=== PATIENT | female | born 1995 | race Caucasian/White ===

== ENCOUNTER 2016-11-14 05:40 | Day surgery (SDC) | payer OTHER ==
[2016-11-14] MEDS ORDERED: NS 0.9% 1000 ML* 1,000 ML IV ONE (06:00)
[2016-11-14 06:49] LABS: Hematocrit 40 % (35-47); Hemoglobin 13.3 g/dl (12.0-16.0); Mean Corpuscular HGB Conc 33 g/dl (31-36); Mean Corpuscular Hemoglobin 30 pg (27-31); Mean Corpuscular Volume 89 fL (80-97); Mean Platelet Volume 10 um3 (7.4-10.4); Red Blood Count 4.49 10^6/ul (4.0-5.4); Red Cell Distribution Width 13 % (10.5-15); White Blood Count 14.6 10^3/ul (3.5-10.8)
[2016-11-14 07:04] LABS: ALT 12 U/L (7-52); AST 12 U/L (13-39); Albumin 4.3 g/dL (3.2-5.2); Alkaline Phosphatase 44 U/L (34-104); Anion Gap 7 mmol/L (2-11); BUN/Creatinine Ratio 15.7 (8-20); Blood Urea Nitrogen 13 mg/dL (6-24); C Reactive Protein 3.26 mg/L (< 5.00); CO2 Carbon Dioxide 26 mmol/L (22-32); Calcium 9.4 mg/dL (8.6-10.3); Chloride 104 mmol/L (101-111); EGFR African American 111.6 (>60); EGFR Non-African American 86.8 (>60); Globulin 2.6 g/dL (2-4); Glucose 97 mg/dL (70-100); Lipase 11 U/L (11.0-82.0); Potassium 3.8 mmol/L (3.5-5.0); Sodium 137 mmol/L (133-145); Total Protein 6.9 g/dL (6.4-8.9)
--- NOTE | 2016-11-14 08:29 | RAD ---
HISTORY: Right lower quadrant pain COMPARISONS: None TECHNIQUE: Multiple transverse and longitudinal ultrasound images were obtained of the right lower quadrant using grayscale and color Doppler imaging. FINDINGS: The appendix is not visualized. There is no free or loculated fluid within the right lower quadrant. IMPRESSION: THE APPENDIX IS NOT VISUALIZED. THERE IS NO FREE OR LOCULATED FLUID WITHIN THE RIGHT LOWER QUADRANT.
--- NOTE | 2016-11-14 08:31 | RAD ---
HISTORY: Pelvic pain COMPARISONS: None TECHNIQUE: Multiple transverse and longitudinal ultrasound images were obtained of the pelvis using grayscale, color Doppler, and spectral Doppler imaging using the transabdominal transducer. The patient deferred endovaginal imaging. FINDINGS: UTERUS: The uterus measures 8 x 3.5 x 5.6 cm. The uterus is normal in shape, size, contour, and echotexture. ENDOMETRIUM: The endometrial stripe is smooth. The endometrium measures 0.6 cm in thickness. CUL-DE-SAC: There is no free fluid within the cul-de-sac. RIGHT OVARY: The right ovary measures 3.7 x 2.1 x 2.2 cm. Normal arterial and venous waveforms are identifiable within the ovary on spectral Doppler imaging. Multiple follicles are noted. LEFT OVARY: The left ovary measures 2.6 x 2 x 3.1 cm. Normal arterial and venous waveforms are identifiable within the ovary on spectral Doppler imaging. Multiple follicles are noted. BLADDER: The visualized bladder is unremarkable. OTHER: None IMPRESSION: NO ACUTE SONOGRAPHIC PATHOLOGY OF THE VISUALIZED PORTION OF THE PELVIS. NO SONOGRAPHIC FEATURES OF TORSION. PLEASE NOTE THAT PARTIAL OR INTERMITTENT TORSION MAY BE SONOGRAPHICALLY NORMAL.
[2016-11-14 08:42] LABS: Urine Bilirubin Negative (Negative); Urine Glucose Negative (Negative); Urine Nitrite Negative (Negative)
[2016-11-14] MEDS ORDERED: Iohexol 300* (CONTRAST) 10 ML SDV IV ONE (09:23)
--- NOTE | 2016-11-14 09:59 | RAD ---
CLINICAL HISTORY: Right lower quadrant pain COMPARISON: None TECHNIQUE: Multiple contiguous axial CT scans were obtained of the abdomen and pelvis after the administration of intravenous contrast. Coronal and sagittal multiplanar reformations are submitted for review. Oral contrast was administered. Delayed images were obtained through the abdomen and pelvis. FINDINGS: LUNG BASES: The lung bases are clear. LIVER: The liver is normal in shape, size, contour, and attenuation. BILE DUCTS: There is no intrahepatic or extrahepatic biliary dilatation. GALLBLADDER: The gallbladder is normal, without pericholecystic inflammatory change. PANCREAS: The pancreas is normal, without mass or ductal dilatation. SPLEEN: Normal in size and appearance. UPPER GI TRACT: Evaluation of the gastrointestinal tract is limited by incomplete gastric distention. The upper GI tract is unremarkable. SMALL BOWEL AND MESENTERY: The small bowel is normal in contour, course, and caliber. There is no obstruction or dilatation. COLON: The colon is normal in contour, course, caliber. There is no pericolonic inflammatory change. There is a tubular, vermiform, hollow viscus most consistent with the appendix best seen on axial images 50 through 63. This is at the upper limits of normal in caliber, with diffuse mucosal enhancement is mild stranding of the mesoappendix. ADRENALS: Normal bilaterally. KIDNEYS: The kidneys are normal in shape, size, contour, and axis. There is no hydronephrosis or nephrolithiasis. BLADDER: The bladder is smooth in contour. PELVIC ORGANS: The uterus and adnexa are grossly normal for technique. AORTA: The aorta is normal. IVC: Unremarkable LYMPH NODES: There is no lymphadenopathy by size criteria. ABDOMINAL WALL: There is no evidence for abdominal wall hernia. BONES AND SOFT TISSUES: The bones and soft tissues are unremarkable. OTHER: There is a small amount of free fluid within the pelvis. IMPRESSION: FINDINGS SUGGESTIVE OF EARLY APPENDICITIS IN THE CORRECT CLINICAL SETTING. THERE IS NO LOCULATED FLUID COLLECTION TO SUGGEST ABSCESS.
[2016-11-14] MEDS ORDERED: Morphine INJ* 2 MG/ML 1 ML CARPUJECT IV ONE (11:18)
[2016-11-14] MEDS ORDERED: HYDROmorphone INJ* 1 MG/ML CARPUJECT SYRINGE IV PRN ×2 (11:31→13:42)
[2016-11-14] MEDS ORDERED: Ondansetron INJ* 2 MG/ML VIAL IV PRN (11:31)
[2016-11-14] MEDS ORDERED: Clindamycin 900 MG IVPREMIX(* 900 MG/50 ML SDV IV ONE ×2 (11:35→12:01)
[2016-11-14] MEDS ORDERED: Midazolam* 1 MG/ML 2 ML VIAL (2 MG) ONE (12:08)
[2016-11-14] MEDS ORDERED: fentaNYL* 50 MCG/ML 2 ML VIAL (100 MCG VIAL) ONE ×2 (12:08→12:49)
[2016-11-14] MEDS ORDERED: Succinylcholine* 20 MG/ML 10 ML VIAL ONE (12:11)
[2016-11-14] MEDS ORDERED: Propofol* 10 MG/ML 20 ML BTL IV PUSH ONE (12:11)
[2016-11-14] MEDS ORDERED: Ondansetron INJ* 2 MG/ML VIAL ONE (12:11)
[2016-11-14] MEDS ORDERED: Lidocaine 2% PF * 5 ML VIAL ONE (12:11)
[2016-11-14] MEDS ORDERED: Dexamethasone IV* 4 MG/ML 1 ML (4 MG) ONE (12:11)
[2016-11-14] MEDS ORDERED: Bupivacaine 0.25% SDV* 30 ML ONE (12:20)
--- NOTE | 2016-11-14 12:55 | HP ---
Amended report to enter cosigning doctor. ADMISSION HISTORY AND PHYSICAL: DATE OF ADMISSION: 11/14/16 PATIENT OF: Jerrell Parson MD* (dictated by KAVON Curtis). REASON FOR ADMISSION: Right lower quadrant abdominal pain. HISTORY OF PRESENT ILLNESS: Karolyn is a pleasant 21-year-old female, who presented to the emergency room earlier this morning with complaints of sudden onset of severe abdominal pain since 4 o'clock this morning. The patient notes that she was asleep and then awakened suddenly with severe abdominal pain that started to be more diffuse and then eventually migrated and was localized to her right lower quadrant. She notes associated nausea since last night, but denies any vomiting, fever or chills. She denies having any similar complaints in the past. She described it as sharp, persistent abdominal pain localized to her right lower quadrant with no radiation and associated with nausea, but no vomiting or any other associated symptoms. She otherwise is a healthy 21-year- old female with no significant past medical history except for a history of celiac disease for which she had some improvement keeping gluten free diet. She presented to the emergency room and had both pelvic and abdominal ultrasound that revealed no visualization of the appendix as well as no evidence of ovarian torsion. She went on and had a CT scan that was consistent with signs of acute early appendicitis. She also had a laboratory workup that revealed leukocytosis with white count of 14,600. Given her ongoing symptoms and the finding of the CT scan, we were asked to see the patient for further evaluation for abdominal pain. PAST MEDICAL HISTORY: Significant for celiac disease for which the patient has been maintained on a gluten free diet. She also reports possible history of polycystic ovarian syndrome for which he has been just started on metformin recently. She also has a history of an anxiety and depression. PAST SURGICAL HISTORY: Significant for recent upper endoscopy with duodenal biopsies that revealed evidence of celiac disease. CURRENT MEDICATIONS: I do not have the actual dose, but the patient just recently started on metformin and Lexapro. ALLERGIES: She is allergic to AMOXICILLIN and CEFPROZIL. FAMILY HISTORY: Noncontributory. SOCIAL HISTORY: The patient is a student at [employer]. She lives with 2 close friends in a nearby apartment. She is originally from [place]. She drinks alcohol occasionally and denies smoking or illicit drug use. REVIEW OF SYSTEMS: See HPI, otherwise negative. She denies any headache, dizziness, syncope, or blurred vision. No cough, shortness of breath, sore throat, or wheezing. No flank pain, back pain, dysuria, hematuria, or urinary frequency. She denies any fever, chills, night sweats or recent weight loss. She admits to right lower quadrant abdominal pain with associated nausea, but denies any vomiting or changes in the bowel habits. PHYSICAL EXAMINATION GENERAL: She is a pleasant healthy-appearing 21-year-old female in no acute distress or discomfort at the time of admission. VITAL SIGNS: Most recent set of vitals revealed temperature of 99.0, pulse of 91, blood pressure of 109/61, and O2 sat of 98% on room air. HEENT: Sclerae anicteric. PERRLA. EOMs intact. Oropharynx is pink, moist with no exudate. NECK: Supple. Trachea midline. No cervical adenopathy, thyromegaly, or JVD. LUNGS: Clear to auscultation bilaterally. BREASTS: Exam deferred at this time. HEART: Regular rate and rhythm. Normal S1, S2 without rubs, murmurs, or gallops. BACK: Normal curvature. No CVA tenderness. ABDOMEN: Soft and nondistended. There is moderate right lower quadrant tenderness noted on palpation with focal tenderness at McBurney's point. There is some mild guarding, but no rigidity or rebound tenderness. There is no hernias, masses, or hepatosplenomegaly. Garvin sign was negative. EXTREMITIES: Without cyanosis, clubbing, or edema. RECTAL: Exam deferred at this time. NEUROLOGIC: Grossly intact. LABORATORY DATA: Laboratory workup as mentioned above. The patient had a CBC with white count of 14,600, hemoglobin 13.3, hematocrit of 40, platelets of 224, 000. Her chemistry was essentially all within normal limits including chem-7, LFTs, amylase, lipase, and her beta-HCG was negative for . Her urine was negative as well. ACCESSORY DIAGNOSTIC DATA: Pelvic ultrasound revealed no evidence of ovarian torsion. Right lower quadrant abdominal ultrasound showed nonvisualized appendix. CT scan of the abdomen and pelvis showed finding suggesting an early appendicitis. IMPRESSION: A 21-year-old female with signs and symptoms as well as a CT scan finding consistent with acute appendicitis. PLAN: I went on and discussed with the patient proceeding with surgery. The rationale, indications, risks and benefits of laparoscopic appendectomy were discussed with her today. Risks include but not limited to infection, bleeding , or injury to adjacent structures. She seems to understand and wishes to proceed with surgery given her ongoing symptoms. I discussed the case with Dr. Parson and she will be likely kept today for observation depending on what time she will be taken to the operating room and likely be home either later this evening or tomorrow morning. KAVON CUTRIS [id number]/[facility] #: [id number] MTDD
[2016-11-14] MEDS ORDERED: Bacitracin OINTMENT* 1 TUBE ONE (13:22)
--- NOTE | 2016-11-14 13:28 | SURGPN ---
Brief Operative Note - Surgery Procedures: Pre-OP Diagnoses: acute appendicitis Post-op Diagnosis: same Procedure: Laparoscopic appendectomy Surgeon: Blank Asst: none Anethesia: SILASA EBL: minimal IVF: crystalloid Specimen: appendix Drains: none
[2016-11-14] MEDS ORDERED: fentaNYL* 50 MCG/ML 2 ML VIAL (100 MCG VIAL) IV PRN (13:42)
[2016-11-14] MEDS ORDERED: Metoclopramide IV* 5 MG/ML 2 ML VIAL IV PRN (13:42)
[2016-11-14] MEDS ORDERED: Acetaminophen TAB* 325 MG PO PRN (13:42)
[2016-11-14] MEDS ORDERED: Scopolamine 1.5 mg* PATCH TRANSDERM PRN (13:42)
[2016-11-14 14:31] VITALS: BP 118/70
[2016-11-14] MEDS ORDERED: Scopolamine 1.5 mg* PATCH ONE (14:51)
--- NOTE | 2016-11-14 18:00 | ED ---
Nicole Lyon Thomas, scribed for Kobe Meek MD on 11/14/16 at 0733 . Abdominal Pain/Female - HPI Summary HPI Summary: The pt is a 23 y/o F presenting to the ED c/o RLQ abd pain that began today at 04:00. The pain is located in the RLQ, although initially it was diffuse throughout the abdomen. The pain is rated 5/10. The pain is aggravated and alleviated by nothing. 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 Pt additionally c/o nausea (last night). Pt denies vomiting. She has a Hx of Celiac disease, although she maintains a strict gluten-free diet and says that her current pain is different from her typical Celiac pain. There is no history of abdominal surgeries. LNMP 15 days ago. Pt states there is no risk for . She is accompanied by a friend. - History of Current Complaint Chief Complaint: EDAbdPain Stated Complaint: LOWER RIGHT ABD PAIN Time Seen by Provider: 11/14/16 07:10 Hx Obtained From: Patient, Family/Dental Ceramist Helper - friend is present in the room Onset/Duration: Lasting Hours - onset today at 04:00, Still Present Timing: Constant Pain Intensity: 5 Pain Scale Used: 0-10 Numeric Location: Discrete At: RLQ - although initially the pain was diffuse Aggravating Factor(s): Nothing Alleviating Factor(s): Nothing Associated Signs and Symptoms: Positive: Nausea - last night. Negative: Vomiting Allergies/Adverse Reactions: Allergies Allergy/AdvReac Type Severity Reaction Status Date / Time Amoxicillin Allergy Hives Verified 11/14/16 05:45 Cefprozil [From Cefzil] Allergy Hives Verified 11/14/16 05:45 PMH/Surg Hx/FS Hx/Imm Hx Previously Healthy: No Endocrine/Hematology History: Denies: Hx Diabetes GI History: Reports: Other GI Disorders - Hx of Celiac disease - Surgical History Surgery Procedure, Year, and Place: None - Immunization History Date of Tetanus Vaccine: 10/2013 Date of Influenza Vaccine: 10/2015 Immunizations Up to Date: Yes Infectious Disease History: No Infectious Disease History: Denies: Traveled Outside the [place] in Last 30 Days - Family History Known Family History: Positive: Other - When asked FHx, the patient responds "nothing" - Social History Alcohol Use: Occasionally Hx Substance Use: No Substance Use Type: Reports: None Hx Tobacco Use: No Smoking Status (MU): Never Smoked Tobacco Review of Systems Negative: Fever Positive: Abdominal Pain - RLQ abd pain onset today at 04:00, Nausea. Negative : Vomiting All Other Systems Reviewed And Are Negative: Yes Physical Exam - Summary Physical Exam Summary: VITAL SIGNS: Reviewed. GENERAL: Patient is a well-developed and nourished female who is lying comfortable in the stretcher. Patient is not in any acute respiratory distress. HEAD AND FACE: Normocephalic and atraumatic. EYES: PERRLA, EOMI x 2, No injected conjunctiva. EARS: Hearing grossly intact. Ear canals and tympanic membranes are WNL. MOUTH: Oropharynx within normal limits. NECK: Supple, trachea is midline, no adenopathy, no JVD. CHEST: Symmetric, no tenderness at palpation LUNGS: Clear to auscultation bilaterally. No wheezing or crackles. CVS: RRR, S1 and S2 present, no murmurs or gallops appreciated. ABDOMEN: There is positive RUQ tenderness. There is mild RLQ tenderness. Soft. No signs of distention. Positive bowel sounds. No rebound no guarding, and no masses palpated. No abdominal bruit or pulsations. EXTREMITIES: FROM in all major joints, no edema, no cyanosis or clubbing. NEURO: Alert and oriented x 3. No acute neurological deficits. Speech is normal. SKIN: Dry and warm Triage Information Reviewed: Yes Vital Signs On Initial Exam: Initial Vitals Temp Pulse Resp BP Pulse Ox 99.0 F 94 18 125/74 96 11/14/16 05:43 11/14/16 05:43 11/14/16 05:43 11/14/16 05:43 11/14/16 05:43 Vital Signs Reviewed: Yes Diagnostics - Vital Signs Vital Signs Temp Pulse Resp BP Pulse Ox 11/14/16 05:43 99.0 F 94 18 125/74 96 - Laboratory Lab Results: Lab Results 11/14/16 11/14/16 11/14/16 Range/Units 06:35 06:35 06:35 WBC 14.6 H (3.5-10.8) 10^3/ul RBC 4.49 (4.0-5.4) 10^6/ul Hgb 13.3 (12.0-16.0) g/dl Hct 40 (35-47) % MCV 89 (80-97) fL MCH 30 (27-31) pg MCHC 33 (31-36) g/dl RDW 13 (10.5-15) % Plt Count 224 (150-450) 10^3/ul MPV 10 (7.4-10.4) um3 Neut % (Auto) 85.7 H (38-83) % Lymph % (Auto) 6.9 L (25-47) % Foster % (Auto) 6.4 (1-9) % Eos % (Auto) 0.6 (0-6) % Baso % (Auto) 0.4 (0-2) % Absolute Neuts (auto) 12.5 H (1.5-7.7) 10^3/ul Absolute Lymphs (auto) 1.0 (1.0-4.8) 10^3/ul Absolute Monos (auto) 0.9 H (0-0.8) 10^3/ul Absolute Eos (auto) 0.1 (0-0.6) 10^3/ul Absolute Basos (auto) 0.1 (0-0.2) 10^3/ul Absolute Nucleated RBC 0 10^3/ul Nucleated RBC % 0 Sodium 137 (133-145) mmol/L Potassium 3.8 (3.5-5.0) mmol/L Chloride 104 (101-111) mmol/L Carbon Dioxide 26 (22-32) mmol/L Anion Gap 7 (2-11) mmol/L BUN 13 (6-24) mg/dL Creatinine 0.83 (0.51-0.95) mg/dL Est GFR ( Amer) 111.6 (>60) Est GFR (Non-Af Amer) 86.8 (>60) BUN/Creatinine Ratio 15.7 (8-20) Glucose 97 (70-100) mg/dL Lactic Acid 0.9 (0.5-2.0) mmol/L Calcium 9.4 (8.6-10.3) mg/dL Total Bilirubin 0.70 (0.2-1.0) mg/dL AST 12 L (13-39) U/L ALT 12 (7-52) U/L Alkaline Phosphatase 44 (34-104) U/L C-Reactive Protein 3.26 (< 5.00) mg/L Total Protein 6.9 (6.4-8.9) g/dL Albumin 4.3 (3.2-5.2) g/dL Globulin 2.6 (2-4) g/dL Albumin/Globulin Ratio 1.7 (1-3) Lipase 11 (11.0-82.0) U/L Beta HCG, Quant < 0.60 mIU/mL Result Diagrams: 11/14/16 06:35 11/14/16 06:35 Lab Statement: Any lab studies that have been ordered have been reviewed, and results considered in the medical decision making process. - CT CT Abd/Pel CT Interpretation: Positive (See Comments) - FINDINGS SUGGESTIVE OF EARLY APPENDICITIS IN THE CORRECT CLINICAL SETTING. THERE IS NO LOCULATED FLUID COLLECTION TO SUGGEST ABSCESS. ED Physician has read this report and agrees. CT Interpretation Completed By: Radiologist - Additional Comments Diagnostic Additional Comments: US Abdo. Interpreted by radiologist. Impression: THE APPENDIX IS NOT VISUALIZED. THERE IS NO FREE OR LOCULATED FLUID WITHIN THE RIGHT LOWER QUADRANT. ED Physician has read this report and agrees. US Pelvic. Interpreted by radiologist. Impression: NO ACUTE SONOGRAPHIC PATHOLOGY OF THE VISUALIZED PORTION OF THE PELVIS. NO SONOGRAPHIC FEATURES OF TORSION. PLEASE NOTE THAT PARTIAL OR INTERMITTENT TORSION MAY BE SONOGRAPHICALLY NORMAL. ED Physician has read this report and agrees. Abdominal Pain Fem Course/Dx - Course Course Of Treatment: The pt is a 23 y/o F presenting to the ED c/o RLQ abd pain that began today at 04:00. The pain is located in the RLQ, although initially it was diffuse throughout the abdomen. The pain is rated 5/10. The pain is aggravated and alleviated by nothing. 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 Pt additionally c/o nausea (last night). Pt denies vomiting. She has a Hx of Celiac disease, although she maintains a strict gluten-free diet and says that her current pain is different from her typical Celiac pain. There is no history of abdominal surgeries. LNMP 15 days ago. Pt states there is no risk for . She is accompanied by a friend. Test results without significant abnormality except increased WBC to 14.6. UA is negative. US of the RUQ and Pelvis were ordered by Dr. De La Fuente. US Abdo shows THE APPENDIX IS NOT VISUALIZED. THERE IS NO FREE OR LOCULATED FLUID WITHIN THE RIGHT LOWER QUADRANT. US Pelvic shows NO ACUTE SONOGRAPHIC PATHOLOGY OF THE VISUALIZED PORTION OF THE PELVIS. NO SONOGRAPHIC FEATURES OF TORSION. PLEASE NOTE THAT PARTIAL OR INTERMITTENT TORSION MAY BE SONOGRAPHICALLY NORMAL. The patient continued to have pain; therefore, I decided to order a CT Abd/Pel to rule out appendicitis. CT Abd/Pel shows FINDINGS SUGGESTIVE OF EARLY APPENDICITIS IN THE CORRECT CLINICAL SETTING. THERE IS NO LOCULATED FLUID COLLECTION TO SUGGEST ABSCESS. ED Physician has read this report and agrees. At this point, the patient was hydrated. I discussed the case with Dr. Parson, surgery, who accepts the patient for admission for further workup and management. She was given 2mg morphine for the pain. The patient is hemodynamically stable and alert and oriented x3. - Diagnoses Differential Diagnosis: Positive: Appendicitis, Constipation, Gall Bladder Disease, Ovarian Cyst, Urinary Tract Infection Provider Diagnoses: Acute appendicitis - Provider Notifications Discussed Care Of Patient With: Jerrell Parson Time Discussed With Above Provider: 11:00 Instructed by Provider To: Other - I consulted with Dr. Parson, surgery, who instructed one of his PAs to come to the ED to evaluate the patient. He admits the patient to [facility] at 11:35 Discharge - Discharge Plan Condition: Fair Disposition: ADMITTED TO [facility] Discharge Disposition Comment: By Dr. Parson The documentation as recorded by the Nicole decker Thomas accurately reflects the service I personally performed and the decisions made by me, Kobe Meek MD.
--- NOTE | 2016-11-15 02:37 | OP ---
CC: [facility] OPERATIVE REPORT: DATE OF OPERATION: 11/14/16 - SDS DATE OF : 95 SURGEON: Jerrell Parson MD STONE REPAIRER: None. ANESTHESIOLOGIST: Dr. Jackson. ANESTHESIA: General. PRE-OP DIAGNOSIS: Acute appendicitis. POST-OP DIAGNOSIS: Acute appendicitis. OPERATIVE PROCEDURE: Laparoscopic appendectomy. ESTIMATED BLOOD LOSS: Minimal blood loss. FLUIDS: Minimal crystalloid fluid given. SPECIMEN: Appendix. DESCRIPTION OF PROCEDURE: The patient was identified in the preoperative area. I discussed the case with her, going over the radiology and her physical exam , discussed the case with the ER physicians and with KAVON Pierce, and I agreed with the diagnosis of acute appendicitis. I recommended laparoscopic appendectomy. I outlined the details of the procedure going over the risks, benefits, and alternatives. The patient agreed to proceed. We spoke about the possible complications in a routine fashion and listing them to include, but not be limited to bleeding, infection, abscess formation, need for additional procedures, need for open procedure, and injury to bladder or small bowel. The patient signed consent, was taken to the operating room, placed in the operating table in the supine position. Preoperative antibiotics were given. Sequential devices were placed to bilateral lower extremities. General anesthesia was induced. The patient's abdomen was prepped and draped in a standard surgical fashion and a time-out performed. Folds of the umbilicus were elevated anteriorly and a Veress needle was inserted into the abdominal cavity, which was then allowed to insufflate to a pressure of 15 mmHg. The patient tolerated the insufflation well. A right upper quadrant incision was made and a 12-mm trocar was inserted at the site. Laparoscope was inserted through this and there was no evidence of injury from the trocar insertion or from the Veress needle which was then removed. A 5 mm trocar was then placed in the umbilicus and a 5 mm in the suprapubic area. The table was repositioned and the inflamed appendix was quickly identified. There was some free fluid in the pelvis and in the right paracolic gutter was identified. With the appendix grasped and rotated towards the midline and anteriorly, blunt and sharp dissection was carried out along the lateral aspect and on the medial aspect. A window was made through the mesentery and a 45-mm martell ANA CRISTINA stapling device was fired across this mesoappendix. Next, the appendix was transected with a 45-mm biswas ANA CRISTINA stapling device right at the base of the appendix ensuring it was right at the side of where the taenia presented. There was no evidence of disease at the site. We transected at this area. The staple line showed some oozing and this was controlled with a 10 -mm clip. Hemostasis was excellent. We did place a gauze in the abdomen and dropped some of the fluid in the paracolic gutter. The appendix was placed in an endoscopic retrieval bag. Gauze was removed. Next, the appendix was removed in the endoscopic retrieval bag through the right upper quadrant port site. Review of the abdomen showed no bleeding and no enteric contents. The abdomen was allowed to collapse. Trocars were removed under direct vision. The umbilical incision site was reapproximated with a simple suture using 3-0 chromic and the other 2 incisions were closed with 4-0 Monocryl subcuticular sutures. Sterile dressing was applied. The patient tolerated the procedure well. [id number]/[facility] #: [id number] JEFFREY
== END 2016-11-14 15:01 | disposition home or self-care (01) ==
LOC: ED 05:40 → OR 11:31
PROVIDERS: ATTEND Surgery
DX: K35.80 Unspecified acute appendicitis (principal); R10.31 Right lower quadrant pain; R11.0 Nausea; J45.990 Exercise induced bronchospasm; K90.0 Celiac disease; R10.2 Pelvic and perineal pain; N94.9 Unspecified condition associated with female genital organs and menstrual cycle; E66.9 Obesity, unspecified
CPT/HCPCS: 36415; 74177; 76705; 76856; 80053; 81003; 83605; 83690; 84702; 85025; 86140; 88304; 96374; 99284; A9270-GY; C1776; J0330; J1100; J2250; J2270; J2405; J2704; J3010; Q9967